=== PATIENT | male | born 1965 | race Two or more races ===

== ENCOUNTER 2020-03-08 05:24 | Day surgery (SDC) | payer MEDICARE, OTHER ==
[~2020-03-08] VITALS: Ht 170.2 cm; Wt 89.8 kg
[~2020-03-08 05:24] MED LIST: ALPRAZOLAM XR0.5 MG MT; ANORA PO; CYCLOBENZAPRINE10 MG PO; DULOXETINE HCL30 MG MT; LATUDA40 MG PO; PERCOCET 10/31 COMBO PO; QMIIZ ODT15 MG MT; VISTARIL 50MG C50 M1 PO
[2020-03-08 09:28] VITALS: BP 120/71
[2020-03-21] MEDS ORDERED: PERCOCET 10/31 COMBO PO (11:03)
[2020-05-09] MEDS ORDERED: PERCOCET 10/31 COMBO PO (13:21)
== END 2020-03-08 09:05 | disposition home or self-care (01) ==
LOC: ORM 05:24
PROVIDERS: ATTEND Anesthesiology Pain Medicine
DX: M54.5 Low back pain (principal); M47.816 Spondylosis without myelopathy or radiculopathy, lumbar region; Z01.84 Encounter for antibody response examination

== ENCOUNTER 2020-04-19 06:36 | Day surgery (SDC) | payer MEDICARE, OTHER ==
[2020-04-19] MEDS ORDERED: PERCOCET 10/31 COMBO PO (07:16)
[2020-04-19 08:31] VITALS: BP 123/80
[2020-04-19] MEDS ORDERED: ANORO ELLIPTA 61 AER IN (09:00)
[2020-05-09] MEDS ORDERED: PERCOCET 10/31 COMBO PO (13:21)
== END 2020-04-19 08:55 | disposition home or self-care (01) ==
LOC: ORM 06:36
PROVIDERS: ATTEND Anesthesiology Pain Medicine
DX: M46.1 Sacroiliitis, not elsewhere classified (principal); Z01.84 Encounter for antibody response examination; M54.5 Low back pain
CPT/HCPCS: Q9967

== ENCOUNTER 2020-05-24 06:05 | Day surgery (SDC) | payer MEDICARE, OTHER ==
[~2020-05-24] VITALS: Ht 170.2 cm; Wt 86.6 kg
[~2020-05-24 06:05] MED LIST changes: +ANORO ELLIPTA 61 AER IN
[2020-05-24] MEDS ORDERED: PERCOCET 10/31 COMBO PO (07:40)
[2020-05-24 08:10] VITALS: BP 151/77
== END 2020-05-24 08:47 | disposition home or self-care (01) ==
LOC: ORM 06:05
PROVIDERS: ATTEND Anesthesiology Pain Medicine
DX: M54.2 Cervicalgia (principal); Z01.84 Encounter for antibody response examination
CPT/HCPCS: Q9967

== ENCOUNTER 2020-07-19 06:05 | Day surgery (SDC) | payer MEDICARE, OTHER ==
[2020-07-19 08:28] VITALS: BP 117/82
== END 2020-07-19 08:47 | disposition home or self-care (01) ==
LOC: ORM 06:05
PROVIDERS: ATTEND Anesthesiology Pain Medicine
DX: M53.3 Sacrococcygeal disorders, not elsewhere classified (principal); M54.5 Low back pain; Z01.84 Encounter for antibody response examination

== ENCOUNTER 2020-08-02 05:49 | Day surgery (SDC) | payer MEDICARE, OTHER ==
[~2020-08-02] VITALS: Ht 170.2 cm; Wt 78.0 kg
[2020-08-02] MEDS ORDERED: PERCOCET 10/31 COMBO PO ×2 (06:54→06:55)
[2020-08-02 08:02] VITALS: BP 141/74
== END 2020-08-02 08:17 | disposition home or self-care (01) ==
LOC: ORM 05:49
PROVIDERS: ATTEND Anesthesiology Pain Medicine
DX: M54.5 Low back pain (principal); M53.3 Sacrococcygeal disorders, not elsewhere classified; Z01.84 Encounter for antibody response examination

== ENCOUNTER 2020-09-20 05:56 | Day surgery (SDC) | payer MEDICARE, OTHER ==
[~2020-09-20 05:56] MED LIST changes: +HYDROCODONE/ACE1 TAB PO
[2020-09-20 07:55] VITALS: BP 130/76
[2020-09-20] MEDS ORDERED: HYDROCODONE/ACE1 TAB PO (08:03)
[2020-09-20] MEDS ORDERED: HYDROCODONE/ACE1 T12 PO (08:09)
== END 2020-09-20 08:15 | disposition home or self-care (01) ==
LOC: ORM 05:56
PROVIDERS: ATTEND Anesthesiology Pain Medicine
DX: M54.5 Low back pain (principal); M53.3 Sacrococcygeal disorders, not elsewhere classified; M54.6 Pain in thoracic spine; Z01.84 Encounter for antibody response examination

== ENCOUNTER 2021-01-31 05:58 | Day surgery (SDC) | payer MEDICARE, OTHER ==
[~2021-01-31] VITALS: Ht 170.2 cm; Wt 81.6 kg
[~2021-01-31 05:58] MED LIST changes: +HYDROCODONE/ACE1 T12 PO; +LORTAB 1010 MG PO
[2021-01-31 07:46] VITALS: BP 147/92
[2021-01-31] MEDS ORDERED: LORTAB 1010 MG PO (08:02)
== END 2021-01-31 08:05 | disposition home or self-care (01) ==
LOC: ORM 05:58
PROVIDERS: ATTEND Anesthesiology Pain Medicine
DX: M54.6 Pain in thoracic spine (principal); M12.88 Other specific arthropathies, not elsewhere classified, other specified site